=== PATIENT | male | born 1945 | race Caucasian/White ===

== ENCOUNTER 2023-11-04 12:54 | Emergency (ER) | payer OTHER ==
[2023-11-04] MEDS: Albuterol/Ipratropium 3.0-0.5 MG/3 ML Neb Soln NEB ONE (14:04)
[2023-11-04 14:28] LABS: BASOPHILS PERCENT AUTO 0.4 % (0.0-1.0); EOSINOPHILS ABSOLUTE AUTO 0.1 K/mm3 (0.0-0.4); EOSINOPHILS PERCENT AUTO 1.8 % (0.0-6.0); HEMOGLOBIN 15.3 gm/dl (14.0-18.0); IMMATURE GRAN ABSOLUTE AUTO 0.02 K/mm3 (0.00-0.05); IMMATURE GRAN PERCENT AUTO 0.3 % (0.0-0.4); LYMPHOCYTES ABSOLUTE AUTO 2.2 K/mm3 (1.0-4.8); LYMPHOCYTES PERCENT AUTO 30.4 % (24.0-44.0); MEAN CORPUSCULAR HEMOGLOBIN 30.8 pg (28.0-32.0); MEAN CORPUSCULAR HGB CONC 33.3 g/dl (32.0-36.0); MEAN CORPUSCULAR VOLUME 92.7 fl (83.0-99.0); MEAN PLATELET VOLUME 8.6 fl (9.4-12.4); MONOCYTES ABSOLUTE AUTO 0.6 K/mm3 (0.0-0.8); MONOCYTES PERCENT AUTO 7.7 % (0.0-8.0); NEUTROPHILS ABSOLUTE AUTO 4.4 K/mm3 (1.8-7.7); NEUTROPHILS PERCENT AUTO 59.4 % (41.0-71.0); PLATELET COUNT,PLT 233 K/mm3 (150-400); RED BLOOD CELL COUNT 4.96 M/mm3 (4.52-5.90); WHITE BLOOD CELL COUNT,WBC 7.36 K/mm3 (3.9-11.3)
[2023-11-04 15:08] LABS: A/G RATIO 1.2 (1-2); ALBUMIN 3.6 g/dl (3.4-5.0); ANION GAP 12.1 (5-15); CALCIUM 8.9 mg/dL (8.5-10.1); EST CRCL DRUG DOSING (CG) 64.67 mL/min; POTASSIUM,K 4.1 mEq/L (3.5-5.1); PROTEIN TOTAL,TP 6.6 g/dl (6.4-8.2)
[2023-11-04] MEDS: predniSONE 20 MG Tab PO ONE (15:43)
== END 2023-11-04 15:47 | disposition home or self-care (01) ==
LOC: JD.ED 12:54
DX: J44.1 Chronic obstructive pulmonary disease with (acute) exacerbation (principal); I10 Essential (primary) hypertension; K21.9 Gastro-esophageal reflux disease without esophagitis; Z87.891 Personal history of nicotine dependence; Z79.899 Other long term (current) drug therapy; Z88.5 Allergy status to narcotic agent
CPT/HCPCS: 36415; 71045; 80053; 83880; 84484; 85025; 93005; 94640; 99285; J7512; 93010; 99283; J7620-GY